=== PATIENT | male | born 1945 | race Caucasian/White ===

== ENCOUNTER 2018-01-03 10:19 | Emergency (ER) | payer OTHER ==
[~2018-01-03] VITALS: Ht 175.3 cm; Wt 84.8 kg
[~2018-01-03 10:19] MED LIST: ASPIR 8181 MG PO; CIPRO250 M1 PO; FISH OIL 1,001000 M2 PO; FLOMAX0.4 MG PO; LEVSIN0.125 MG SUBLING; MIRALAX17 GM PO; PERCOCET 5-3251 EACH PO; SENOKOT-S1 TA1 PO
[2018-01-03] MEDS ORDERED: MOBIC15 MG PO (11:37)
[2018-01-03] MEDS ORDERED: CYCLOBENZAPRINE5 MG PO (11:37)
[2018-01-03] MEDS ORDERED: ACETAMINOPHEN-1 EAC1 PO (11:37)
[2018-01-03 11:51] VITALS: BP 155/93
== END 2018-01-03 11:52 | disposition home or self-care (01) ==
LOC: M.ERS 10:19
DX: M54.41 Lumbago with sciatica, right side (principal)